=== PATIENT | male | born 1950 | race Caucasian/White ===

== ENCOUNTER 2019-01-28 12:10 | Outpatient (CLI) | payer MEDICARE, OTHER ==
--- NOTE | 2019-02-03 12:17 | CT Report ---
Reason: TOBACCO ABUSE Procedure Date: 01/28/2019 Accession Number: [id number] / [id number] Procedure: CT - Low Dose Lung Cancer Screen CPT Code: FULL RESULT: EXAM CT LUNG SCREEN EXAM DATE: 01/28/2019 12:40 PM. HISTORY: 68-year-old patient with [id number] smoking history. Currently smoking: No. Years since quitting: Discontinued smoking in 2009. COMPARISON: None. TECHNIQUE: CT examination of the entire thorax without contrast was performed using low-dose technique. Thin section coronal, axial, sagittal and MIP axial images were obtained. In accordance with CT protocol optimization, one or more of the following dose reduction techniques were utilized for this exam: automated exposure control, adjustment of mA and/or KV based on patient size, or use of iterative reconstructive technique. FINDINGS: Nodules: Right upper lobe: 3 mm right upper lobe nodule image 78 series 4. Right middle lobe: None. Right lower lobe: None. Left upper lobe: None. Left lower lobe: None. Emphysema: Mild. Pleura: Unremarkable. Aorta: Mildly calcified. Not overtly aneurysmal. Mediastinum: Pacemaker is noted. Coronary calcifications: Moderate. Other pulmonary findings: None. Other extrapulmonary findings: 4.0 x 3.0 cm posterior right lobe of the liver hypodensity, Hounsfield units are suggestive of cysts but these measurements are unreliable in low-dose techniques. Mild thickening of the right adrenal gland, Hounsfield units are suggestive of adrenal adenoma; again, Hounsfield units are not reliable with low-dose technique. Suggestion of inferior pole of the left lobe of the thyroid nodule, approximately 1.4 cm. IMPRESSION: Lung-RADS ASSESSMENT CATEGORY: 2 - benign appearance. Probability of malignancy: Less than 1%. RECOMMENDATION: Recommend continued annual low-dose chest CT for lung cancer screening as per Lung-RADS guidelines. The incidentally discovered nodule of the left thyroid gland is amenable to characterization by thyroid ultrasound unless this has already been performed. The two incidental findings of a hypodense liver lesion and mild right adrenal thickening appear subjectively benign. Unfortunately, density measurements which are normally used for characterization are not reliable on this examination. Based on this, attention on routine future annual lung screening CTs is a reasonable approach. If due to clinical considerations definitive characterization is needed, this can be achieved for both lesions with a single CT abdomen with and without contrast. [facility]
== END 2019-01-28 12:11 | disposition home or self-care (01) ==
LOC: DI 12:10
PROVIDERS: ATTEND Family Medicine
DX: Z12.2 Encounter for screening for malignant neoplasm of respiratory organs (principal); J43.9 Emphysema, unspecified; Z87.891 Personal history of nicotine dependence

== ENCOUNTER 2019-03-03 13:11 | Outpatient (CLI) | payer MEDICARE, OTHER ==
--- NOTE | 2019-03-04 16:08 | Ultrasound Report ---
Reason: NONTOXIC SINGLE THYROID NODULE Procedure Date: 03/03/2019 Accession Number: [id number] / [id number] Procedure: US - Head or Neck Soft Tissue CPT Code: FULL RESULT: EXAM: THYROID ULTRASOUND EXAM DATE: 03/03/2019 01:16 PM. CLINICAL HISTORY: NONTOXIC SINGLE THYROID NODULE. COMPARISON: CHEST SCREEN LOW DOSE W/O 01/28/2019 12:38 PM. TECHNIQUE: Real time sonographic imaging of the thyroid was performed by the track broom operator. Multiple member service representative static images were saved for review. FINDINGS: THYROID GLAND: Right Lobe: 3.7 x 1.7 x 1.1 cm, volume 3.6 cc. Normal background echotexture. Right Lobe Nodules: None. Left Lobe: 3.5 x 1.6 x 1.3 cm, volume 3.8 cc. Normal background echotexture. Left Lobe Nodules: None. Isthmus: 0.2 cm AP. Isthmic Nodules: None. LYMPH NODES: No adenopathy demonstrated in the central or lateral compartment. OTHER: None. IMPRESSION: No thyroid nodules are detected. Comparison to the chest CT reveals that the apparent nodule was likely an artifact of photon starvation due to the combination of cervical fusion hardware, pacemaker metal and low-dose technique all surrounding the level of the thyroid and question. Management recommendations are based on 2015 [place] [employer] Management Guidelines for Adult Patients with Thyroid Nodules and Differentiated Thyroid Cancer. [facility]
== END 2019-03-03 13:12 | disposition home or self-care (01) ==
LOC: DI 13:11
PROVIDERS: ATTEND Family Medicine
DX: E04.1 Nontoxic single thyroid nodule (principal)
CPT/HCPCS: 76536